=== PATIENT | male | born 1970 | race Caucasian/White ===

== ENCOUNTER 2018-03-09 06:29 | Day surgery (SDC) | payer OTHER ==
[~2018-03-09 06:29] MED LIST: ANAPROX PO; OMEGA 3 1,0001 EACH PO; TURMERIC PO
== END 2018-03-09 15:08 | disposition home or self-care (01) ==
LOC: CIR.AMB 06:29 → EDBD 07:30 → CIR.AMB 07:30
DX: D40.11 Neoplasm of uncertain behavior of right testis (principal)

== ENCOUNTER 2019-03-13 18:38 | Emergency (ER) | payer OTHER ==
[~2019-03-13] VITALS: Ht 175.3 cm; Wt 68.0 kg
[2019-03-13] MEDS ORDERED: AMOX-CLAV 875-1 EACH PO (22:02)
[2019-03-13] MEDS ORDERED: KETO10TA2 PO (22:02)
[2019-03-13] MEDS ORDERED: MEDROLPACK PO (22:02)
[2019-03-13] MEDS ORDERED: TUSNEL LIQUID178 ML PO (22:02)
== END 2019-03-13 22:19 | disposition home or self-care (01) ==
LOC: ER 18:38
DX: J06.9 Acute upper respiratory infection, unspecified (principal)